=== PATIENT | female | born 1955 | race Caucasian/White ===

== ENCOUNTER → 2023-09-01 15:05 | Outpatient (REF) | payer MEDICARE, SELFPAY | LOC: RCS 15:05 | PROVIDERS: ATTENDING PHYSICIAN Physician Assistant Medical; FAMILY PHYSICIAN Internal Medicine | DX: R06.09 Other forms of dyspnea (principal) | CPT/HCPCS: 93306 ==

== ENCOUNTER → 2023-09-28 11:54 | Outpatient (REF) | payer MEDICARE, SELFPAY | LOC: WDC 11:54 | PROVIDERS: ATTENDING PHYSICIAN Internal Medicine | DX: Z12.31 Encounter for screening mammogram for malignant neoplasm of breast (principal) | CPT/HCPCS: 77063; 77067 ==

== ENCOUNTER 2024-09-22 09:16 | Outpatient (RCR) | payer MEDICARE, SELFPAY ==
[2024-09-22 09:40] VITALS: BP 128/84
[2024-09-22] MEDS: EVENITY 105 MG SC ×2 (09:43→09:44)
[2024-09-22 10:10] VITALS: BP 121/83
== END 2024-09-23 09:51 | disposition home or self-care (01) ==
LOC: OID 09:16
PROVIDERS: ATTENDING PHYSICIAN Nurse Practitioner Family
DX: M81.0 Age-related osteoporosis without current pathological fracture (principal)
CPT/HCPCS: 96372; J3111

== ENCOUNTER 2024-10-20 10:49 | Outpatient (RCR) | payer MEDICARE, SELFPAY ==
[2024-10-20 11:00] VITALS: BP 126/73
[2024-10-20] MEDS: EVENITY 105 MG SC ×2 (11:22→11:23)
== END 2024-10-21 10:15 | disposition home or self-care (01) ==
LOC: OID 10:49
PROVIDERS: ATTENDING PHYSICIAN Nurse Practitioner Family
DX: M81.0 Age-related osteoporosis without current pathological fracture (principal)
CPT/HCPCS: 96372; J3111

== ENCOUNTER → 2024-10-20 15:54 | Outpatient (REF) | payer MEDICARE, SELFPAY | LOC: WDC 15:54 | PROVIDERS: ATTENDING PHYSICIAN Internal Medicine | DX: Z12.31 Encounter for screening mammogram for malignant neoplasm of breast (principal) | CPT/HCPCS: 77063; 77067 ==

== ENCOUNTER 2024-11-17 10:42 | Outpatient (RCR) | payer MEDICARE, SELFPAY ==
[2024-11-17 11:10] VITALS: BP 149/85
[2024-11-17] MEDS: EVENITY 105 MG SC ×2 (11:27→11:28)
== END 2024-11-18 08:32 | disposition home or self-care (01) ==
LOC: OID 10:42
PROVIDERS: ATTENDING PHYSICIAN Nurse Practitioner Family; FAMILY PHYSICIAN Internal Medicine
DX: M81.0 Age-related osteoporosis without current pathological fracture (principal)
CPT/HCPCS: 96372; J3111

== ENCOUNTER 2024-12-15 10:52 | Outpatient (RCR) | payer MEDICARE, SELFPAY ==
[2024-12-15] MEDS: EVENITY 105 MG SC ×2 (11:15)
== END 2024-12-16 09:29 | disposition home or self-care (01) ==
LOC: OID 10:52
PROVIDERS: ATTENDING PHYSICIAN Nurse Practitioner Family; FAMILY PHYSICIAN Internal Medicine
DX: M81.0 Age-related osteoporosis without current pathological fracture (principal)
CPT/HCPCS: 96372; J3111